=== PATIENT | male | born 1985 | race Two or more races ===

== ENCOUNTER 2024-08-12 12:54 | Emergency (ER) | payer MEDICAID, OTHER ==
[~2024-08-12] VITALS: Ht 167.6 cm; Wt 63.1 kg
--- NOTE | 2024-08-12 13:15 | ED.PDOC ---
GI ASSESSMENT HPI Comments 39 y.o male presents to the ED for a chief complaint of RLQ pain associated with a fever and nausea that started last night. Patient reports pain is sharp, constant, non radiating and rating a 8/10 on the pain scale which worsens on palpation. Patient denies any vomiting, fever, chills, diarrhea. Patient was unable to eat breakfast today due to the persistent pain. He denies any medical history or allergies. He reports occasional use of alcohol with no tobacco or substance use. Time Seen by MD: 13:09 Reviewed Notes: Nurses Notes, Medications, Allergies Allergies: Coded Allergies: NO KNOWN ALLERGIES (Unverified , 08/12/24) Information Source: Patient Mode of Arrival: Ambulatory Timing: Hours Duration: Since onset Quality: Sharp Vomitus: None Stool: Normal Severity: Moderate Recent: None Recent Hx of: None Pain Location: RLQ Modifying Factors: Nothing Associated sign and symptoms: Nausea, Abdominal Pain, Fever Past Medical History PAST MEDICAL HISTORY: Denies Surgical History: Denies all surgeries Family History Family History: Reviewed,noncontributory to illness, No family hx of Cancer, No family hx of DM, No family hx of Heart yancy, No family hx of HTN, No family hx ofKidney yancy, No family hx of Liver yancy, No family hx of Lung yancy, No family hx of Stroke Social History Smoker: Non-Smoker Alcohol: Occasionally Drugs: Denies Drug Use Lives In: Home Constitutional: reports: fever; denies: chills, diaphoresis, fatigue, malaise, sweats, weakness, others EENTM: denies: blurred vision, double vision, ear bleeding, ear discharge, ear drainage, ear pain, ear ringing, eye pain, eye redness, hearing loss, mouth pain, mouth swelling, nasal discharge, nose bleeding, nose congestion, nose pain, photophobia, tearing, throat pain, throat swelling, voice changes, others Respiratory: denies: cough, hemoptysis, orthopnea, SOB at rest, shortness of breath, SOB with excertion, stridor, wheezing, others Cardiovascular: denies: chest pain, dizzy spells, diaphoresis, Dyspnea on exe rtion, edema, irregular heart beat, left arm pain, lightheadedness, palpitations, PND, syncope, others Gastrointestinal: reports: abdominal pain, nausea; denies: abdomen distended, blood streaked bowels, constipated, diarrhea, dysphagia, difficulty swallowing, hematemesis, melena, poor appetite, poor fluid intake, rectal bleeding, rectal pain, vomiting, others Genitourinary: denies: burning, dysuria, flank pain, frequency, hematuria, incontinence, penile discharge, penile sore, pain, testicle pain, testicle swelling, urgency, others Neurological: denies: dizziness, fainting, headache, left sided numbness, left sided weakness, numbness, paresthesia, pre-existing deficit, right sided numbness, right sided weakness, seizure, speech problems, tingling, tremors, weakness, others Musculoskeletal: denies: back pain, gout, joint pain, joint swelling, muscle pain, muscle stiffness, neck pain, others Integumetry: denies: bruises, change in color, change in hair/nails, dryness, laceration, lesions, lumps, rash, wounds, others Allergic/Immunocompromised: denies: Difficulty Healing, Frequent Infections, Hives, Itching, others Hematologic/Lymphatic: denies: anemia, blood clots, easy bleeding, easy bruising, swollen glands, others Endocrine: denies: excessive hunger, excessive sweating, excessive thirst, excessive urination, flushing, intolerance to cold, intolerance to heat, unexplained weight gain, unexplained weight loss, others Psychiatric: denies: anxiety, bipolar disorder, depression, hopeless, panic disorder, schizophrenia, sleepless, suicidal, others All Other Systems: Reviewed and Negative Physical Exam General Appearance: Moderate Distress HEENT: Normal ENT Inspection, Pharynx Normal, TMs Normal Neck: Full Range of Motion, Non-Tender, Normal, Normal Inspection Respiratory: Chest Non-Tender, Lungs Clear, No Accessory Muscle Use, No Respiratory Distress, Normal Breath Sounds Cardiovascular: No Edema, No JVD, No Murmur, No Gallop, Normal Peripheral Pulses, Regular Rate/Rhythm Breast Exam: Deferred Gastrointestinal: No Organomegaly, No Pulsatile Mass, Normal Bowel Sounds, RLQ, Soft, Tenderness Genitalia: Deferred Pelvic: Deferred Rectal: Deferred Extremities: No calf tenderness, Normal capillary refill, Normal inspection, Normal range of motion, Non-tender, No pedal edema Musculoskeletal : Apperance: Normal Neurologic: Alert, dining services director II-XII nml as Tested, No Motor Deficits, Normal Affect, Normal Mood, No Sensory Deficits Cerebellar Function: Normal Reflexes: Normal Skin: Dry, Normal Color, Warm Lymphatic: No Adenopathy Was a procedure done? Was a procedure done?: No GI differential Dx Differential Diagnosis: Appendicitis, Esophagitis, Gastroenteritis, Pancreatitis X-Ray, Labs, Meds, VS Vital Signs Date Time Temp Pulse Resp B/P (MAP) Pulse Ox O2 Delivery O2 Flow Rate FiO2 08/12/24 15:08 82 25 105/64 08/12/24 14:38 75 20 95 Room Air* 0 21 08/12/24 14:18 58 22 100/61 08/12/24 13:37 98.6 53 16 99/60 (73) 95 98.6 08/12/24 13:15 99.4 73 16 109/72 (84) 99 99.4 Lab Test 08/12/24 13:24 Range/Units White Blood Count 16.7 H 4.4-10.8 10^3/uL Red Blood Count 4.95 4.5-5.90 10^6/uL Hemoglobin 15.9 13.5-17.5 g/dL Hematocrit 46.1 41.0-53.0 % Mean Corpuscular Volume 93.1 80.0-100.0 fL Mean Corpuscular Hemoglobin 32.0 28.0-32.0 pg Mean Corpuscular Hemoglobin Concent 34.4 32.0-36.0 g/dL Red Cell Distribution Width 13.5 11.8-14.3 % Platelet Count 244 140-450 10^3/uL Mean Platelet Volume 8.2 6.9-10.8 fL Neutrophils (%) (Auto) 88.9 H 37.0-80.0 % Lymphocytes (%) (Auto) 4.5 L 10.0-50.0 % Monocytes (%) (Auto) 6.2 0.0-12.0 % Eosinophils (%) (Auto) 0.1 0.0-7.0 % Basophils (%) (Auto) 0.3 0.0-2.0 % Neutrophils # (Auto) 14.8 H 1.6-8.6 10 ^3/uL Lymphocytes # (Auto) 0.7 0.4-5.4 10 ^3/uL Monocytes # (Auto) 1.0 0-1.3 10 ^3/uL Eosinophils # (Auto) 0 0-0.8 10 ^3/uL Basophils # (Auto) 0.1 0-0.2 10 ^3/uL Nucleated Red Blood Cells 0.0 % Prothrombin Time 10.9 9.3-11.8 sec Prothrombin Time INR 1.03 0.9-1.15 Activated Partial Thromboplast Time 26.0 24.5-34.5 SEC Sodium Level 141 136-145 mmol/L Potassium Level 3.9 3.5-5.1 mmol/L Chloride Level 106 98-107 mmol/L Carbon Dioxide Level 26 20-31 mmol/L Anion Gap 9 5-15 Blood Urea Nitrogen 13 9-23 mg/dL Creatinine 1.22 0.700-1.30 mg/dL Glomerular Filtration Rate Calc 78 >90 mL/min BUN/Creatinine Ratio 10.7 10.0-20.0 Serum Glucose 109 H 74-106 mg/dL Calcium Level 10.3 8.7-10.4 mg/dL Current Medications Medications (Trade) Dose Ordered Sig/Zina Route Start Time Stop Time Status Last Admin Ondansetron HCl (Zofran) 4 mg ONCE ONCE IV 08/12/24 13:15 08/12/24 13:16 DC 08/12/24 14:17 Sodium Chloride 1,000 ml @ 1,000 mls/hr Q1H ONCE IVB 08/12/24 13:15 08/12/24 14:14 DC 08/12/24 14:24 Morphine Sulfate 4 mg ONCE ONCE IV 08/12/24 13:15 08/12/24 13:16 DC 08/12/24 14:18 CAT scan of the abdomen and pelvis shows: IMPRESSION: 1. Finding suspicious for colitis versus diverticulitis at the ascending colon. No evidence of perforation or abscess IV Hep-Lock was established The patient was given Zofran 4 mg IV push The patient was given morphine 4 mg IV push for the pain The patient was given normal saline as a bolus. The INR is 1.03 The chemistry panel is within normal limits The patient's CBC shows an elevated white blood cell count of 16.7 At this time, the patient is being admitted to the hospitalist The patient is being started on Flagyl 500 mg IV piggyback Images Reviewed?: Images reviewed and evaluated by me Time of 1ST Reevaluation: 13:14 Reevaluation 1ST: Unchanged Patient Education/Counseling: Diagnosis, Treatment, Prognosis Family Education/Counseling: No Family Present SEPSIS Sepsis Screen Physician Orders Urinalysis (08/12/24 13:11) Ct Ab Pel With Iv Con Only (08/12/24 13:11) Heplock Iv (08/12/24 13:11) Zosyn Extended Infusion (08/12/24 15:45) Vital Signs Date Time Temp Pulse Resp B/P (MAP) Pulse Ox O2 Delivery O2 Flow Rate FiO2 08/12/24 15:08 82 25 105/64 08/12/24 14:38 75 20 95 Room Air* 0 21 08/12/24 14:18 58 22 100/61 08/12/24 13:37 98.6 53 16 99/60 (73) 95 98.6 08/12/24 13:15 99.4 73 16 109/72 (84) 99 99.4 Laboratory Tests Test 08/12/24 13:24 White Blood Count 16.7 10^3/uL (4.4-10.8) H Medications Medications Dose Ordered Sig/Zina Route Start Time Stop Time Status Last Admin Dose Admin Morphine Sulfate 4 mg ONCE ONCE IV 08/12/24 13:15 08/12/24 13:16 DC 08/12/24 14:18 Ondansetron HCl 4 mg ONCE ONCE IV 08/12/24 13:15 08/12/24 13:16 DC 08/12/24 14:17 Sodium Chloride 1,000 ml @ 1,000 mls/hr Q1H ONCE IVB 08/12/24 13:15 08/12/24 14:14 DC 08/12/24 14:24 Departure 1 Departure Time of Disposition: 15:40 Impression: Primary Impression: Intractable abdominal pain Additional Impression: Acute diverticulitis Disposition: 09 ADMITTED INPATIENT Admit to: Med Surg Condition: Fair Critical Care Note Critical Care Time?: Yes (45 min-critical care time only) Stability Stability form required: Yes Unstable for transfer: ED Physician Assesment (Clinical assesment) I personally scribed for MARIA TERESA BLAKELY MD ([email or web address]) on 08/12/24 at 13:15. Electronically submitted by Margie Murrieta ([facility]). MARIA TERESA BLAKELY MD Aug 12, 2024 13:15
[2024-08-12 13:37] VITALS: TEMP 98.6
[2024-08-12 13:39] LABS: Hematocrit 46.1 % (41.0-53.0); Hemoglobin 15.9 g/dL (13.5-17.5); Mean Corpuscular Hemoglobin 32.0 pg (28.0-32.0); Mean Corpuscular Volume 93.1 fL (80.0-100.0); Nucleated Red Blood Cells % 0.0 %
[2024-08-12 13:41] LABS: Chloride 106 mmol/L (98-107); Potassium 3.9 mmol/L (3.5-5.1); Sodium 141 mmol/L (136-145)
[2024-08-12 13:42] LABS: Anion Gap 9 (5-15); Carbon Dioxide 26 mmol/L (20-31)
[2024-08-12 13:43] LABS: Calcium 10.3 mg/dL (8.7-10.4)
[2024-08-12 13:47] LABS: BUN/Creatinine Ratio 10.7 (10.0-20.0); Blood Urea Nitrogen 13 mg/dL (9-23); Glucose 109 mg/dL (74-106)
[2024-08-12 13:48] LABS: INR 1.03 (0.9-1.15); Partial Thromboplastin Time 26.0 SEC (24.5-34.5); Prothrombin Time 10.9 sec (9.3-11.8)
[2024-08-12] MEDS: ONDANSETRON HCL 4 MG/2 ML VIAL IV ONE (14:17)
[2024-08-12] MEDS: MORPHINE SULFATE 4 MG/ML SYR/VIAL IV ONE (14:18)
[2024-08-12] MEDS: SODIUM CHLORIDE 0.9% 1,000 ML IVB ONE (14:24)
[2024-08-12 14:38] VITALS: PULSE 75; RESP 20; O2SAT 95
[2024-08-12] MEDS: IOHEXOL 300 MG/ML 100ML BOTTLE IJ ONE (15:01)
--- NOTE | 2024-08-12 15:36 | DVH ---
EXAM DESCRIPTION: CT CT AB PEL WITH IV CON ONLY CLINICAL HISTORY: rlq pain COMPARISON: None TECHNIQUE: CT abdomen and pelvis with IV contrast was performed. Coronal and sagittal MPR images were generated. CTDI, DLP = 5.22 / 280.59 Dose reduction technique with one or more of the following methods was performed: Automated exposure control, adjustment of the mA and/or kV according to patient size, use of iterative reconstruction te [place] FINDINGS: Lower chest: Bibasilar subsegmental atelectasis. Liver: Homogenous in attenuation. . Biliary: No calcified gallstones. No gallbladder wall thickening. No pericholecystitc fluid.. No erickson iary ductal dilatation. Pancreas: No fat stranding or focal lesion. Spleen: Normal in size.. Adrenal glands: No nodularity. Kidneys: Symmetric enhancement. No hydroureteronephrosis. . Bladder: . Reproductive organs: Normal. Bowel: Extensive inflammatory changes at the ascending colon with wall thickening and pericolonic fat stranding/edema. There are a few diverticula also noted in this region. No organized pericolonic abs cess. The other portions of the colon demonstrate normal caliber and wall thickness. The small bowel demonstrates normal caliber and wall thickness. Peritoneum: No free air. Vessels: Normal caliber abdominal aorta. Lymph nodes: No suspicious lymph nodes. Soft tissues: Unremarkable. . Osseous structures: No acute fracture or subluxation. No suspicious osseous lesions. IMPRESSION: 1. Finding suspicious for colitis versus diverticulitis at the ascending colon. No evidence of perfor ation or abscess
[2024-08-12 16:00] VITALS: BP 102/60; PULSE 85; RESP 17; O2SAT 97
[2024-08-12] MEDS: PIPERACILLIN-TAZOB 3.375GM 100 ML IV ONE (16:37)
[2024-08-12] MEDS ORDERED: METR-344 PO (20:54)
== END 2024-08-12 18:12 | disposition left against medical advice (07) ==
LOC: ER 12:58
DX: K57.92 Diverticulitis of intestine, part unspecified, without perforation or abscess without bleeding (principal)
CPT/HCPCS: 36415; 74177; 80048; 85025; 85610; 85730; 96361; 96365; 96375; 99285; J2270; J2405; J2543; J7030; Q9967